=== PATIENT | male | born 1960 | race Caucasian/White ===

== ENCOUNTER 2018-07-22 20:46 | Emergency (ER) | payer OTHER ==
[~2018-07-22] VITALS: Ht 175.3 cm; Wt 75.0 kg
[2018-07-22] MEDS ORDERED: OMEP40CA2 (21:02)
--- NOTE | 2018-07-22 21:37 | REPVR ---
EXAM: CT Head Without Contrast EXAM DATE/TIME: 07/22/2018 9:06 PM CLINICAL HISTORY: 58 years old, male; Injury or trauma; Fall; Initial encounter; Concussion / head injury; Consciousness not specified; Additional info: Tr TECHNIQUE: Axial computed tomography images of the head/brain without contrast. All CT scans at this facility use at least one of these dose optimization techniques: automated exposure control; mA and/or kV adjustment per patient size (includes targeted exams where dose is matched to clinical indication); or iterative reconstruction. COMPARISON: No relevant prior studies available. FINDINGS: Brain: There is no evidence of intracranial bleed. Ventricles: There is marked enlargement of the lateral ventricles and also the third ventricle. The temporal horns of the lateral ventricles are increased in size as well. This could be the result of normal pressure hydrocephalus. Clinical correlation would be important. Bones/joints: There is no evidence of fracture. Sinuses: Normal as visualized. No acute sinusitis. Mastoid air cells: Normal as visualized. No mastoid effusion. Soft tissues: Normal. Other findings: To exclude any possibility of obstructing process or obstructing ventricular lesion recommend MRI scan with contrast. IMPRESSION: 1. No evidence of fracture. No bleed. 2. Marked enlargement of the lateral ventricles and third ventricle suspicious for hydrocephalus, possibly normal pressure hydrocephalus. Clinical correlation would be important. An MRI scan with contrast would also be important to exclude any possibility of ventricular obstructing lesion. Electronically signed by: Jimmy Ruiz On 07/22/2018 21:37:07 PM
--- NOTE | 2018-07-22 21:44 | REPVR ---
EXAM: CT Cervical Spine Without Contrast EXAM DATE/TIME: 07/22/2018 9:06 PM CLINICAL HISTORY: 58 years old, male; Injury or trauma; Fall; Initial encounter; Concussion /head injury; Additional info: Tr TECHNIQUE: Axial computed tomography images of the cervical spine without intravenous contrast. All CT scans at this facility use at least one of these dose optimization techniques: automated exposure control; mA and/or kV adjustment per patient size (includes targeted exams where dose is matched to clinical indication); or iterative reconstruction. Coronal and sagittal reformatted images were created and reviewed. COMPARISON: No relevant prior studies available. FINDINGS: Vertebrae: The cervical vertebra appear in alignment. The facet joints also appear in alignment. The dens appears intact and the lateral masses of C1 appear symmetric. Discs/Spinal canal/Neural foramina: No spinal stenosis. No neural foraminal narrowing. Soft tissues: There is no evidence of fracture there is no evidence of soft tissue swelling. Lungs: The apical portions of the lung appear clear. IMPRESSION: 1. The cervical vertebra appear in alignment. 2. No evidence of fracture. Electronically signed by: Jimmy Ruiz On 07/22/2018 21:43:49 PM
--- NOTE | 2018-07-23 00:14 | REPVR ---
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 COMPARISON: CT Head without contrast 07/22/2018 9:00 PM FINDINGS: Brain: There is no evidence of acute stroke. At the medial aspect of the right occipital lobe there is a 1 cm oval nodule. This could represent a small meningioma. I would recommend an MRI scan with contrast for further evaluation. Ventricles: There is very severe dilatation of the ventricles which includes the lateral ventricles and significant distention of the third ventricle. It is noted that the aqueduct of [place] is narrow and this may be the cause of the hydrocephalus. Another consideration would include a communicating type hydrocephalus. No clearly defined obstructing mass is identified but an MRI scan with contrast would be helpful for this as well. IMPRESSION: 1. 1 cm oval nodule medial aspect of the right occipital lobe. This may represent a small meningioma. Recommend MRI with contrast for further characterization. 2. Marked dilatation of the lateral ventricles and third ventricle possibly secondary to stenosis of the aqueduct of [place]. Communicating hydrocephalus is another consideration. MRI with contrast would be helpful concerning this as well. Electronically signed by: Jimmy Ruiz On 07/23/2018 00:14:04 AM
[2018-07-23 01:28] VITALS: BP 137/87
--- NOTE | 2018-07-25 09:11 | ED PDOC ---
Post-Departure Follow-Up dr maryam cohen and dr dumas faxed formal report of ct head and mri brain for Gisel Sams lg, MD Jul 25, 2018 09:11
== END 2018-07-23 01:32 | disposition home or self-care (01) ==
LOC: M ED 20:46
DX: G91.9 Hydrocephalus, unspecified (principal); S20.412A Abrasion of left back wall of thorax, initial encounter; W10.8XXA Fall (on) (from) other stairs and steps, initial encounter; Y92.89 Other specified places as the place of occurrence of the external cause; K21.9 Gastro-esophageal reflux disease without esophagitis; Z79.899 Other long term (current) drug therapy